=== PATIENT | male | born 1940 | race Caucasian/White ===

== ENCOUNTER → 2016-10-27 | Outpatient (CLI) | payer MEDICARE, OTHER ==
[~2016-10-27] MED LIST: ASP81CT PO; ATEN25TA PO; CHOL400T43 GT; CHONDROITIN; GLUC-153 PO; GLUC750T; MULT-608 PO; MULT-974 PO; OMG1KC PO; PRAV80TA2 PO; PRD20T; RT-ALBUINH IH; VLS80C; WRF10T PO; WRF5T PO
--- NOTE | 2016-10-27 13:08 | Diagnostic Imaging Report ---
Renal duplex ultrasound. INDICATION: Hypertension. FINDINGS: The right kidney is 12.7 and the left kidney is 11.4 cm in length. There is no hydronephrosis or focal lesion. The right renal artery is obscured proximally and has velocities of 44 and 41 cm/sec in mid and distal segments. The left renal artery velocities are 54, 137 and 55 cm/sec from proximal to distal. The resistive index on the right side is 0.64 to 0.69 and in the left kidney is 0.66-0.68. IMPRESSION: Proximal right renal artery is obscured by overlying bowel. No definite abnormality is seen otherwise. Dictated by: Dictated on workstation # [id number]
== END ==
LOC: RAD 09:57
PROVIDERS: ATTEND Internal Medicine Cardiovascular Disease
DX: I10 Essential (primary) hypertension (principal); E78.2 Mixed hyperlipidemia; R07.9 Chest pain, unspecified; R06.02 Shortness of breath; I82.599 Chronic embolism and thrombosis of other specified deep vein of unspecified lower extremity
CPT/HCPCS: 93975

== ENCOUNTER 2017-05-19 11:29 | Outpatient (RCR) | payer MEDICARE, OTHER | END 2017-07-16 | disposition home or self-care (01) | LOC: CARD 11:29 | PROVIDERS: ATTEND Physician Assistant | DX: I10 Essential (primary) hypertension (principal); E78.2 Mixed hyperlipidemia; R06.02 Shortness of breath; R00.2 Palpitations | CPT/HCPCS: 93225; 93226 ==

== ENCOUNTER → 2017-07-04 | Outpatient (CLI) | payer MEDICARE, OTHER ==
--- NOTE | 2017-07-04 15:55 | Diagnostic Imaging Report ---
PA and lateral views of the chest Indication: Shortness of breath. Cough. Findings: The lungs are clear. The heart size is normal. There is no effusion or pneumothorax The mediastinum and marcello appear unremarkable. Impression: Unremarkable study. Dictated by: Dictated on workstation # [id number]
--- NOTE | 2017-07-04 16:20 | Diagnostic Imaging Report ---
EXAMINATION: Three views of the right ribs. INDICATION: Posterior right rib pain. FINDINGS: There is no fracture or focal lesion seen in the right ribs. The right lung appears clear. IMPRESSION: Unremarkable exam. Dictated by: Dictated on workstation # [id number]
== END ==
LOC: RAD 15:21
PROVIDERS: ATTEND Nurse Practitioner
DX: R06.02 Shortness of breath (principal); R05 Cough
CPT/HCPCS: 71020; 71100

== ENCOUNTER → 2017-09-02 | Outpatient (CLI) | payer MEDICARE, OTHER ==
[~2017-09-02] MED LIST changes: +CATHETER FLUSH 10 ML SYR IV PRN; +IOHEXOL 350 MG/ML 100 ML (OMNIPAQUE 350) VIAL IV ONE; +NS 100 ML (IVPB) BAG IV ONE
[2017-09-02 10:57] LABS: BLOOD UREA NITROGEN 14 MG/DL (7-18); BUN/CREATININE RATIO 18; CREATININE SERUM 0.79 MG/DL (0.60-1.30); GFR ESTIMATED > 60
--- NOTE | 2017-09-02 12:13 | Diagnostic Imaging Report ---
PROCEDURE: CT chest with contrast only. TECHNIQUE: Multiple contiguous axial images were obtained through the chest after administration of intravenous contrast. INDICATION: Back pain inferior right scapular, worse with deep inspirations. FINDINGS: Scapulae appeared normally oriented, symmetric, and unremarkable. No periscapular soft tissue or fluid-density mass or mass effect. Ribs bilaterally appeared symmetric and unremarkable. There is some chronic thoracic spondylosis with no acute spinal abnormality. Sternum and manubrium are unremarkable. The aorta is unremarkable. The pulmonary arterial branches are centrally patent. No thoracic effusion. No lymphadenopathy. No focal consolidation. No lung mass. No atelectasis. No pleural or pericardial effusion. There is no pneumothorax. There are small stones within the gallbladder. The gallbladder partially visualized did not appear dilated and the biliary ducts were nondistended. The partially visualized pancreas is unremarkable. There is no adrenal mass. Upper poles of the kidneys are normal. IMPRESSION: No acute pulmonary parenchymal, pleural, mediastinal, or chest wall abnormality. Chest portion is unremarkable. Cholelithiasis is noted. Dictated by: Dictated on workstation # [id number]
== END ==
LOC: RAD 10:28
PROVIDERS: ATTEND Internal Medicine
DX: K80.20 Calculus of gallbladder without cholecystitis without obstruction (principal)
CPT/HCPCS: 36415; 71260; 82565; 84520

== ENCOUNTER → 2018-07-06 | Outpatient (CLI) | payer MEDICARE, OTHER ==
[~2018-07-06] MED LIST changes: -CATHETER FLUSH 10 ML SYR IV PRN; -IOHEXOL 350 MG/ML 100 ML (OMNIPAQUE 350) VIAL IV ONE; -NS 100 ML (IVPB) BAG IV ONE
--- NOTE | 2018-07-06 15:47 | Diagnostic Imaging Report ---
CLINICAL INDICATION: Patient with cough and congestion for past two weeks. Patient on [id number] drugs and not getting any better. EXAM: Chest x-ray PA and lateral views. COMPARISONS: Chest x-ray dated 07/04/2017. FINDINGS: Lungs/pleura: Lungs are clear. There is no pneumothorax. There is no pleural effusion. Mediastinum: Unremarkable. Pulmonary vasculature: Unremarkable. Heart: Unremarkable. Bones/extrathoracic soft tissue: There are moderately hypertrophic degenerative osteophytes scattered throughout the thoracic spine. IMPRESSION: There is no radiographic evidence of acute cardiopulmonary process. Dictated by: Dictated on workstation # [id number]
== END ==
LOC: RAD 14:26
PROVIDERS: ATTEND Nurse Practitioner
DX: J18.9 Pneumonia, unspecified organism (principal)
CPT/HCPCS: 71046

== ENCOUNTER → 2019-05-23 | Outpatient (CLI) | payer MEDICARE ==
[~2019-05-23] VITALS: Ht 182.9 cm; Wt 106.6 kg
[~2019-05-23] MED LIST changes: +CATHETER FLUSH 10 ML SYR IV PRN
[2019-05-23 09:08] VITALS: BP 153/92
[2019-05-23 09:15] VITALS: BP 225/107
[2019-05-23 09:17] VITALS: BP 188/91
--- NOTE | 2019-05-24 00:01 | STRESS TEST ---
DATE OF SERVICE: 05/23/2019 EXERCISE MYOVIEW STRESS STUDY Baseline heart rate is 62. Baseline blood pressure 153/92. Baseline EKG is sinus rhythm with no ischemic changes. In summary, the patient was injected with 11.0 mCi of technetium-99 Myoview and the resting images were obtained. Then, the patient started exercising with a baseline heart rate, blood pressure and EKG mentioned above. The patient was able to exercise for 5 minutes 15 seconds on standard Luis protocol. With peak exercise level, blood pressure was 228/98. EKG was showing minimal nondiagnostic changes. During recovery, heart rate and blood pressure returned to baseline. EKG returned to baseline. The resting and stress images were reviewed and compared in the short axis, horizontal long axis, and vertical long axis views. Review of the images showed diaphragmatic attenuation with typical male pattern. No significant ischemia or infarction was seen. SSS is 4, SDS 3, TID value 1.07. On the gated images, the left ventricle appeared to be in normal size with normal contractility. Calculated ejection fraction 52%. CONCLUSION: 1. Fair exercise tolerance, a total of 5 minutes 15 seconds on standard Luis protocol, total of 7.1 METS achieving 90% of maximum expected heart rate. 2. Severe hypertensive response to exercise with peak blood pressure 228/98 returned to baseline during recovery. 3. Nondiagnostic EKG changes with exercise returned to baseline during recovery. 4. Diaphragmatic attenuation with typical male pattern. No significant ischemia or infarction on SPECT images. 5. Normal left ventricular size with normal contractility. Calculated ejection fraction 52%. Job ID: [id number] DocumentID: [id number] Dictated Date: 05/23/2019 19:41:50 Supply Aide Date: 05/24/2019 00:01:17 Dictated By: MAMI REEDER MD
== END ==
LOC: CARD 06:57
PROVIDERS: ATTEND Internal Medicine Cardiovascular Disease
DX: I10 Essential (primary) hypertension (principal); E78.2 Mixed hyperlipidemia; R06.02 Shortness of breath; R00.2 Palpitations
CPT/HCPCS: 78452; 93017

== ENCOUNTER → 2020-10-14 | Outpatient (CLI) | payer MEDICARE, OTHER ==
[~2020-10-14] VITALS: Ht 182 cm; Wt 106.0 kg
[~2020-10-14] MED LIST changes: +BAMLANIVIMAB 700 MG in NS 200 ML IV ONE; -CATHETER FLUSH 10 ML SYR IV PRN; +EPINEPHrine INJECTION 1 MG/ML AMP IM PRN; +diphenhydrAMINE 50 MG/ML INJ (BENADRYL) IV PRN
[2020-10-14 13:01] VITALS: BP 154/89
[2020-10-14 14:42] VITALS: BP 156/74
[2020-10-14 15:45] VITALS: BP 156/79
== END ==
LOC: INFUSION 13:07
PROVIDERS: ATTEND Physician Assistant
DX: U07.1 COVID-19 (principal)

== ENCOUNTER → 2021-10-21 | Outpatient (CLI) | payer MEDICARE, OTHER ==
[~2021-10-21] MED LIST changes: -BAMLANIVIMAB 700 MG in NS 200 ML IV ONE; +CATHETER FLUSH 10 ML SYR IV PRN; -EPINEPHrine INJECTION 1 MG/ML AMP IM PRN; -diphenhydrAMINE 50 MG/ML INJ (BENADRYL) IV PRN
[2021-10-21 13:04] VITALS: BP 164/86
--- NOTE | 2021-10-21 14:48 | Cardiology Stress Test Report ---
Stress Test Report Date of Procedure/Referring: Date of Procedure: Oct 21, 2021 Berkley Zhao Admitting Physician Michi Blanca MD Indications: CAD Baseline Heart Rate: 62 Baseline Blood Pressure: Blood Pressure Systolic: 164 Blood Pressure Diastolic: 86 Vital Signs Date Time Temp Pulse Resp B/P (MAP) Pulse Ox O2 Delivery O2 Flow Rate FiO2 10/21/21 13:04 83 16 164/86 (112) 97 Room Air Baseline Vital Signs Vital Signs Date Time Temp Pulse Resp B/P (MAP) Pulse Ox O2 Delivery O2 Flow Rate FiO2 10/21/21 13:04 83 16 164/86 (112) 97 Room Air Baseline EKG: Baseline EKG: NSR Summary: After explaining the procedure and details to the patient, he signed the consent and was brought to the stress nuclear laboratory. Patient exercised on standard Luis protocol, EKG, heart rate and blood pressure were monitored continuously, resting and stress doses of radio tracer were injected, imaging was acquired and reviewed in the short axis, horizontal long axis and vertical long axis views Patient was able to exercise for a total of 4.30 minutes on Luis protocol, METs 6.2 Maximum heart rate 129 Maximum blood pressure 215/96 Stress EKG, Minimal nondiagnostic changes Recovery EKG, Return to baseline TID: 0.91 SSS: 4 SDS: 4 EF: 63 Conclusion: 1. Fair exercise tolerance for 4 minutes and 30 seconds on standard Luis protocol, 6.2 METS achieving 90% of maximum expected heart rate return to baseline during recovery 2. Appropriate heart rate response to exercise with multiple PVCs noted at peak stress level and short runs of 3 beats nonsustained ventricular tachycardia induced by exercise 3. Severe hypertensive response to exercise with peak blood pressure 215/96 return to baseline during recovery 4. Mild reversible ischemia involving the mid to apical inferior wall 5. Normal left ventricular size, EF 63% MAMI REEDER MD Oct 21, 2021 14:48
== END ==
LOC: CARD 11:30
PROVIDERS: ATTEND Physician Assistant
DX: I11.9 Hypertensive heart disease without heart failure (principal); I25.10 Atherosclerotic heart disease of native coronary artery without angina pectoris
CPT/HCPCS: 78452; 93017; 93306; A9502

== ENCOUNTER 2021-11-04 08:00 | Day surgery (SDC) | payer MEDICARE ==
[2021-11-04] VITALS (10 sets, daily range): BP systolic 123–164; BP diastolic 66–98
[~2021-11-04] VITALS: Ht 182.8 cm; Wt 109.4 kg
[2021-11-04 07:25] LABS: BILIRUBIN,URINE NEGATIVE (NEGATIVE); CLARITY,URINE CLEAR; COLOR,URINE YELLOW; GLUCOSE, URINE (UA) NEGATIVE (NEGATIVE); KETONES,URINE NEGATIVE (NEGATIVE); LEUKOCYTE ESTERASE ,URINE NEGATIVE (NEGATIVE); NITRITE,URINE NEGATIVE (NEGATIVE); PROTEIN,URINE NEGATIVE (NEGATIVE)
[2021-11-04 07:30] LABS: HEMATOCRIT 46 % (40-54); MEAN CORPUSCULAR HEMOGLOBIN 32 pg (25-34); MEAN CORPUSCULAR HGB CONC 35 g/dL (32-36); MEAN CORPUSCULAR VOLUME 90 fL (80-99); MEAN PLATELET VOLUME 9.7 fL (9.0-12.2); PLATELET COUNT 217 10^3/uL (130-400); WHITE BLOOD COUNT 6.5 10^3/uL (4.3-11.0)
--- NOTE | 2021-11-04 07:34 | Diagnostic Imaging Report ---
EXAM: CHEST 1 VIEW, AP/PA ONLY INDICATION: Coronary artery disease. Abnormal stress test. COMPARISON: 07/19/2016. FINDINGS: Normal heart size and pulmonary vascularity. No dense consolidation, pleural effusion or pneumothorax. No acute osseous findings. IMPRESSION: No acute cardiopulmonary findings. Dictated by: Dictated on workstation # [id number]
[2021-11-04 07:46] LABS: BACTERIA,URINE NEGATIVE /HPF
[~2021-11-04 08:00] MED LIST changes: +ACET-2267 PO; -CATHETER FLUSH 10 ML SYR IV PRN; +CETI10TA17 PO; +HEParin (CATH LAB) 2,000 ML IV ONE; +HYDR25TA4 PO; +LIDOCAINE 1% INJ 20 ML VIAL ONE; +LOSA100T57 PO; +MTP25TSR PO; +NS IV 1000 ML 1,000 ML IV SCH; +NS IV 1000 ML 1,000 ML ONE; +PRAV40TA2 PO
[2021-11-04 08:01] LABS: INR 0.9 (0.8-1.4); PROTHROMBIN TIME PATIENT 12.8 SEC (12.2-14.7)
[2021-11-04] MEDS ORDERED: fentaNYL INJ 100 MCG/2 ML AMP ONE (08:06)
[2021-11-04] MEDS ORDERED: MIDAZOLAM 5 MG/5 ML (VERSED) VIAL ONE (08:06)
[2021-11-04] MEDS ORDERED: HEParin 1000 UNIT/ML (10ML VIAL) FOR BOLUS ONE (08:06)
[2021-11-04] MEDS ORDERED: VERAPAMIL 5 MG/2 ML (CALAN) VIAL IV ONE (08:06)
[2021-11-04] MEDS ORDERED: NITRO DRIP 25000 MCG/D5W 250 ML IV ONE (08:07)
[2021-11-04] MEDS ORDERED: diphenhydrAMINE 50 MG/ML INJ (BENADRYL) ONE (08:08)
[2021-11-04 08:09] LABS: CREATININE SERUM 0.86 MG/DL (0.60-1.30); POTASSIUM 3.7 MMOL/L (3.6-5.0); TOTAL PROTEIN 6.6 GM/DL (6.4-8.2)
[2021-11-04] MEDS ORDERED: methylPREDNISolone 125 MG (Solu-MEDROL) VIAL ONE (08:09)
--- NOTE | 2021-11-04 08:15 | Conscious Sedation/ASA ---
Conscious Sedation Pre-Proced Time 08:15 ASA Score 3 For ASA 3 and 4: Consider anesthesia and medical clearance. Also, for patients with a history of failed moderate sedation consider anesthesia. Airway Lungs Heart ASA score ASA 1: a normal healthy patient ASA 2: a patient with a mild systemic disease (mid diabetes, controlled hypertension, obesity x ASA 3: a patient with a severe systemic disease that limits activity (angina, COPD, prior Myocardial infarction) ASA 4: a patient with an incapacitating disease that is a constant threat to life (CHF, renal failure) ASA 5: a moribund patient not expected to survive 24 hrs. (ruptured aneurysm) ASA 6: a declared brain- patient whose organs are being harvested. For emergent operations, add the letter E after the classification Mallampati Classification Grade 3 Sedation Plan Analgesia, Amnesia, Plan communicated to team members, Discussed options with patient/fam, Discussed risks with patient/fam The patient is an appropriate candidate to undergo the planned procedure, sedation, and anesthesia. The patient immediately re-assessed prior to indication. MAMI REEDER MD Nov 04, 2021 08:15
--- NOTE | 2021-11-04 08:50 | Discharge Inst-Post CATH ---
Discharge Inst-CATH/EP Problems Reviewed?: Yes Post Cardiac Cath/EP D/C Inst Follow Up/Plan Appointment with Dr. Pierre's office in 2 to 4 weeks <b>CARDIAC CATH/EP PROCEDURE DISCHARGE INSTRUCTIONS</b> ACTIVITY * Go Home directly and rest. * Limit activity of the leg (or wrist if it was used) for 7 days including aer obics, swimming, jogging, bicycling, etc. * Restrict stair-climbing for 7 days if possible, if not, climb up with your non-cath leg, then bring together on the same step. * Avoid lifting, pushing, pulling or excessive movement of the affected extremi ty for 7 days. * Customary sexual activity may be resumed after 2 days-use caution not to use a position that strains or causes pain to the affected extremity. * No driving for 24 hours. * NO SMOKING. * Avoid straining for bowel movements for 7 days. * Gentle walking on level ground is allowed. * Returning to work will depend on the type of procedure and the results. Your doctor will discuss this with you. CALL YOUR DOCTOR FOR ANY OF THE FOLLOWING: *If bleeding from the puncture site occurs- Apply gentle pressure to site with clean cloth and call your doctor or EMS. * If a knot or lump forms under the skin, increases in size, or causes pain. * If bruising appears to be worsening or moving further down your leg instead of disappearing. * Temperature above 101 F. CARE OF YOUR GROIN INCISION; * Bruising or purple discoloration of the skin near the puncture site is common. * You may shower only, no bathtub bathing for 5 days. Be careful to avoid slipping as your leg may feel stiff. * If a closure device was used on your femoral artery, please see the attached guide regarding care of the device and your leg. * Leave dressing on FOR 24 hours. CARE OF YOUR WRIST INCISION; * Bruising or purple discoloration of the skin near the puncture site is common. * You may shower. * DO NOT submerge wrist. * Leave dressing on FOR 24 hours. MAMI PIERRE MD Nov 04, 2021 08:50
--- NOTE | 2021-11-04 08:55 | Cardiac Cath Report ---
Cardiac Cath Report Physician (s)/Distribution Associate (s) Physician MAMI REEDER MD Pre-Procedure Diagnosis Pre-Procedure Diagnosis: Coronary artery disease Post-Procedure Note Procedure Start Date: Nov 04, 2021 Name of Procedure: Left heart catheterization Aortic arch angiogram Findings/Procedure Note PROCEDURE NOTE: 81 years old gentleman with history of recurrent chest pain, had an abnormal stress test, scheduled for cardiac catheterization possible PTCA. After explaining the procedure to the patient, all pros and cons were explained, all questions were answered. The patient signed the consent and then he was placed on the cardiac catheterization laboratory. Groin was prepped SL fashion local anesthesia was used. Sheath placed in the right radial artery, I had difficulty advancing the wire through the aortic arch due to tortuosity. I evaluated the aortic arch with angiogram at the end of the procedure. [place] catheter was advanced to the left ventricular cavity, pressure was measured, pullback LV to aorta was done, engaged the right and left coronary system, angiogram was done. At the end of the procedure the sheath was removed. 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 CONCLUSION: 1. Mild coronary artery disease nonobstructive disease 2. Normal left ventricular end-diastolic pressure 3. 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
[2021-11-04] MEDS ORDERED: NS IV 1000 ML 1,000 ML IV SCH (09:00)
== END 2021-11-04 12:13 | disposition home or self-care (01) ==
LOC: CATH 08:00 → SDC 09:09 → CATH 12:13
PROVIDERS: ATTEND Internal Medicine Cardiovascular Disease
DX: I25.10 Atherosclerotic heart disease of native coronary artery without angina pectoris (principal); I10 Essential (primary) hypertension; E78.2 Mixed hyperlipidemia; R00.2 Palpitations; M19.90 Unspecified osteoarthritis, unspecified site; E66.9 Obesity, unspecified; Z68.31 Body mass index [BMI] 31.0-31.9, adult; Z86.16 Personal history of COVID-19; Z87.891 Personal history of nicotine dependence; Z79.01 Long term (current) use of anticoagulants; Z79.82 Long term (current) use of aspirin; Z79.899 Other long term (current) drug therapy; Z86.718 Personal history of other venous thrombosis and embolism
CPT/HCPCS: 36221; 71045; 80053; 80061; 81000; 85027; 85610; 85730; 87081; 93458; C1894; 36415

== ENCOUNTER → 2021-12-08 | Outpatient (CLI) | payer MEDICARE ==
[~2021-12-08] MED LIST changes: -HEParin (CATH LAB) 2,000 ML IV ONE; -LIDOCAINE 1% INJ 20 ML VIAL ONE; -NS IV 1000 ML 1,000 ML IV SCH; -NS IV 1000 ML 1,000 ML ONE; +RT-ALBUTEROL SULF 2.5 MG/3 ML PRE-MIX VIAL INH ONE
== END ==
LOC: RT 10:45
PROVIDERS: ATTEND Internal Medicine Cardiovascular Disease
DX: R06.00 Dyspnea, unspecified (principal)
CPT/HCPCS: 94060; 94726; 94729

== ENCOUNTER → 2022-12-21 | Outpatient (CLI) | payer MEDICARE ==
[~2022-12-21] MED LIST changes: +ALBU8.5H6 IH; -RT-ALBUINH IH; -RT-ALBUTEROL SULF 2.5 MG/3 ML PRE-MIX VIAL INH ONE
[2022-12-21 09:45] LABS: HEMATOCRIT 47 % (40-54); HEMOGLOBIN 16.5 g/dL (13.3-17.7); MEAN CORPUSCULAR HEMOGLOBIN 31 pg (25-34); MEAN CORPUSCULAR HGB CONC 35 g/dL (32-36); MEAN CORPUSCULAR VOLUME 87 fL (80-99); MEAN PLATELET VOLUME 9.5 fL (9.0-12.2); PLATELET COUNT 220 10^3/uL (130-400); WHITE BLOOD COUNT 7.9 10^3/uL (4.3-11.0)
[2022-12-21 09:54] LABS: CHLORIDE 106 MMOL/L (98-107); POTASSIUM 3.2 MMOL/L (3.6-5.0); SODIUM 141 MMOL/L (135-145)
[2022-12-21 09:55] LABS: CALCIUM 8.9 MG/DL (8.5-10.1)
[2022-12-21 09:56] LABS: GLUCOSE 135 MG/DL (70-105)
[2022-12-21 09:57] LABS: CARBON DIOXIDE 22 MMOL/L (21-32)
[2022-12-21 09:59] LABS: ALKALINE PHOSPHATASE 95 U/L (40-136)
--- NOTE | 2022-12-21 09:59 | Diagnostic Imaging Report ---
EXAMINATION: Chest 2 view HISTORY: Cough. Dyspnea. COMPARISON: 07/06/2018 and 11/04/2021. FINDINGS: The lung volumes are normal. No focal consolidation is seen. No large pleural effusion or pneumothorax is seen. The cardiomediastinal silhouette is normal in size and contour. No acute osseous abnormality is seen. IMPRESSION: No acute pleuroparenchymal process. Dictated by: Dictated on workstation # [id number]
[2022-12-21 10:00] LABS: GFR ESTIMATED 89
[2022-12-21 10:01] LABS: BUN/CREATININE RATIO 21
[2022-12-21 10:02] LABS: ALANINE AMINOTRANSFERASE 23 U/L (0-55)
== END ==
LOC: CARD 09:29
PROVIDERS: ATTEND Nurse Practitioner Family
DX: R05.9 Cough, unspecified (principal); R06.00 Dyspnea, unspecified
CPT/HCPCS: 36415; 71046; 80053; 84484; 85027; 85379; 93005

== ENCOUNTER → 2022-12-29 | Outpatient (CLI) | payer MEDICARE | LOC: CARD 10:07 | PROVIDERS: ATTEND Internal Medicine Cardiovascular Disease | DX: I11.9 Hypertensive heart disease without heart failure (principal); I08.0 Rheumatic disorders of both mitral and aortic valves; I25.10 Atherosclerotic heart disease of native coronary artery without angina pectoris | CPT/HCPCS: 93306 ==

== ENCOUNTER 2023-02-02 07:22 | Day surgery (SDC) | payer MEDICARE ==
[2023-02-02] VITALS (8 sets, daily range): BP systolic 114–146; BP diastolic 77–104
[~2023-02-02] VITALS: Ht 182.9 cm; Wt 101.9 kg
[2023-02-02] MEDS ORDERED: NS IV 1000 ML 1,000 ML IV SCH (07:30)
[2023-02-02] MEDS ORDERED: NS IV 1000 ML 1,000 ML ONE (07:43)
[2023-02-02] MEDS ORDERED: proPOfol 200 MG/20 ML (DIPRIVAN) VIAL IV ONE (07:44)
--- NOTE | 2023-02-02 08:18 | Cardiac Procedure Note-CS/ASA ---
Pre-Procedure Note Pre-Op Procedure Note Date of Available H&P: Jan 18, 2023 Date H&P Reviewed: Feb 02, 2023 Time H&P Reviewed: 08:17 History & Physical: H&P Reviewed, Patient Examed, No changes noted Pre-Operative Diagnosis: a fib Moderate Sedation PreProcedure Time 08:17 ASA Score 3 Airway Lungs Heart ASA score ASA 1: a normal healthy patient ASA 2: a patient with a mild systemic disease (mid diabetes, controlled hypertension, obesity ASA 3: a patient with a severe systemic disease that limits activity (angina, COPD, prior Myocardial infarction) ASA 4: a patient with an incapacitating disease that is a constant threat to life (CHF, renal failure) ASA 5: a moribund patient not expected to survive 24 hrs. (ruptured aneurysm) ASA 6: a declared brain- patient whose organs are being harvested. For emergent operations, add the letter E after the classification Mallampati Classification Grade 3 Sedation Plan Analgesia, Amnesia, Plan communicated to team members, Discussed options with patient/fam, Discussed risks with patient/fam The patient is an appropriate candidate to undergo the planned procedure, sedation, and anesthesia. The patient immediately re-assessed prior to indication. MAMI REEDER MD Feb 02, 2023 08:18
[2023-02-02] MEDS ORDERED: LOSA100T57 PO (08:23)
[2023-02-02] MEDS ORDERED: OMEG100032 PO (08:23)
[2023-02-02] MEDS ORDERED: HYDR25TA4 PO (08:23)
[2023-02-02] MEDS ORDERED: RT-ALBUINH INH (08:23)
[2023-02-02] MEDS ORDERED: MULT-1136 PO (08:23)
[2023-02-02] MEDS ORDERED: ACET325T38 PO (08:23)
[2023-02-02] MEDS ORDERED: RIVA20TA PO (08:23)
[2023-02-02] MEDS ORDERED: PRAV80TA2 PO (08:23)
[2023-02-02] MEDS ORDERED: ASPI-1238 PO (08:23)
[2023-02-02] MEDS ORDERED: MTP100TCR PO (08:23)
[2023-02-02] MEDS ORDERED: FLEC50TA PO (08:26)
--- NOTE | 2023-02-02 08:27 | Discharge Inst-Post CATH ---
Discharge Inst-CATH/EP Problems Reviewed?: Yes Post Cardiac Cath/EP D/C Inst Follow Up/Plan Appointment with Dr. Pierre's office in 1 to 2 weeks <b>CARDIAC CATH/EP PROCEDURE DISCHARGE INSTRUCTIONS</b> ACTIVITY * Go Home directly and rest. * Limit activity of the leg (or wrist if it was used) for 7 days including aer obics, swimming, jogging, bicycling, etc. * Restrict stair-climbing for 7 days if possible, if not, climb up with your non-cath leg, then bring together on the same step. * Avoid lifting, pushing, pulling or excessive movement of the affected extremi ty for 7 days. * Customary sexual activity may be resumed after 2 days-use caution not to use a position that strains or causes pain to the affected extremity. * No driving for 24 hours. * NO SMOKING. * Avoid straining for bowel movements for 7 days. * Gentle walking on level ground is allowed. * Returning to work will depend on the type of procedure and the results. Your doctor will discuss this with you. CALL YOUR DOCTOR FOR ANY OF THE FOLLOWING: *If bleeding from the puncture site occurs- Apply gentle pressure to site with clean cloth and call your doctor or EMS. * If a knot or lump forms under the skin, increases in size, or causes pain. * If bruising appears to be worsening or moving further down your leg instead of disappearing. * Temperature above 101 F. CARE OF YOUR GROIN INCISION; * Bruising or purple discoloration of the skin near the puncture site is common. * You may shower only, no bathtub bathing for 5 days. Be careful to avoid slipping as your leg may feel stiff. * If a closure device was used on your femoral artery, please see the attached guide regarding care of the device and your leg. * Leave dressing on FOR 24 hours. CARE OF YOUR WRIST INCISION; * Bruising or purple discoloration of the skin near the puncture site is common. * You may shower. * DO NOT submerge wrist. * Leave dressing on FOR 24 hours. MAMI PIERRE MD Feb 02, 2023 08:27
--- NOTE | 2023-02-02 08:28 | Cardioversion ---
Cardioversion PROCEDURE PHYSICIAN: Mami Pierre DATE OF PROCEDURE: 02/02/23 DIRECT EXTERNAL ELECTRICAL CARDIOVERSION: Indications: Atrial Fibrillation with rapid ventricular rate Preoperative diagnoses: Atrial Fibrillation with rapid ventricular rate Postoperative diagnosis: Sinus rhythm, Successful Electrical Cardioversion History: 82 years old gentleman noticed to be in atrial fibrillation, has been complaining of fatigue, has been on oral anticoagulation, scheduled for electrical cardioversion Anesthesia: By Anesthesia services Complications: None Specimen: None Contrast: 0 Flouroscopy: none Procedure Details: The patient was brought the farm laborer after informed consent was taken, all the risks and complications were explained including the risk of stroke. Electrical cardioversion was carried out with anesthesia support with propofol. 200 joules of synchronized shock was delivered through external patches which promptly restored sinus rhythm. The patient tolerated the procedure well. Conclusions: Successful electrical cardioversion terminating atrial fibrillation Final Diagnosis: Paroxysmal atrial fibrillation Palpitation Coronary artery disease Hypertension MAMI PIERRE MD Feb 02, 2023 08:28
--- NOTE | 2023-02-02 08:44 | Anesthesia-General Post-Op ---
MAC Patient Condition Mental Status/LOC: Same as Preop Cardiovascular: Satisfactory Nausea/Vomiting: Absent Respiratory: Satisfactory Pain: Controlled Complications: Absent Post Op Complications Complications None Follow Up Care/Instructions Patient Instructions None needed. Anesthesiology Discharge Order Discharge Order Patient is doing well, no complaints, stable vital signs, no apparent adverse anesthesia problems. No complications reported per nursing. KOSTAS HERNANDEZ CRNA Feb 02, 2023 08:44
== END 2023-02-02 09:20 | disposition home or self-care (01) ==
LOC: CATH 07:22
PROVIDERS: ATTEND Internal Medicine Cardiovascular Disease
DX: I48.0 Paroxysmal atrial fibrillation (principal); I10 Essential (primary) hypertension; E78.2 Mixed hyperlipidemia; I25.10 Atherosclerotic heart disease of native coronary artery without angina pectoris; I65.23 Occlusion and stenosis of bilateral carotid arteries; M19.90 Unspecified osteoarthritis, unspecified site; E66.9 Obesity, unspecified; Z68.31 Body mass index [BMI] 31.0-31.9, adult; Z96.651 Presence of right artificial knee joint; Z79.01 Long term (current) use of anticoagulants; Z86.16 Personal history of COVID-19; Z87.891 Personal history of nicotine dependence; Z86.718 Personal history of other venous thrombosis and embolism
CPT/HCPCS: 87081; 92960; 93005

== ENCOUNTER 2023-07-29 11:54 | Emergency (ER) | payer MEDICARE ==
[~2023-07-29] VITALS: Ht 182.8 cm; Wt 102.0 kg
[~2023-07-29 11:54] MED LIST changes: +ACET325T38 PO; +ASPI-1238 PO; +FLEC50TA PO; -LOSA100T57 PO; +LOSA100T58 PO; +MTP100TCR PO; +MULT-1136 PO; +OMEG100032 PO; +RIVA20TA PO; +RT-ALBUINH INH
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
[2023-07-29 12:44] LABS: BASOPHILS % (AUTO) 1 % (0-10); EOSINOPHILS # (AUTO) 0.2 10^3/uL (0.0-0.3); EOSINOPHILS % (AUTO) 3 % (0-10); HEMATOCRIT 43 % (40-54); HEMOGLOBIN 15.3 g/dL (13.3-17.7); LYMPHOCYTES # (AUTO) 1.8 10^3/uL (1.0-4.0); LYMPHOCYTES % (AUTO) 31 % (12-44); MEAN CORPUSCULAR HEMOGLOBIN 32 pg (25-34); MEAN CORPUSCULAR HGB CONC 35 g/dL (32-36); MEAN CORPUSCULAR VOLUME 91 fL (80-99); MONOCYTES # (AUTO) 0.6 10^3/uL (0.0-1.0); MONOCYTES % (AUTO) 10 % (0-12); NEUTROPHILS # (AUTO) 3.3 10^3/uL (1.8-7.8); NEUTROPHILS % (AUTO) 56 % (42-75); PLATELET COUNT 183 10^3/uL (130-400); WHITE BLOOD COUNT 5.9 10^3/uL (4.3-11.0)
[2023-07-29 12:51] LABS: ALBUMIN 3.9 GM/DL (3.2-4.5); INR 1.6 (0.8-1.4); POTASSIUM 3.4 MMOL/L (3.6-5.0); PROTHROMBIN TIME PATIENT 19.5 SEC (12.2-14.7)
[2023-07-29 12:53] LABS: TOTAL PROTEIN 6.4 GM/DL (6.4-8.2)
[2023-07-29 12:55] LABS: BILIRUBIN,TOTAL 1.3 MG/DL (0.1-1.0)
[2023-07-29 12:57] LABS: CREATININE SERUM 0.86 MG/DL (0.60-1.30)
[2023-07-29 13:05] LABS: ERYTHROCYTE SEDIMENTATION RATE 7 MM/HR (0-30); FIBRIN DEGRADATION PRODUCTS 0.51 UG/ML (0.00-0.49)
--- NOTE | 2023-07-29 13:09 | Diagnostic Imaging Report ---
INDICATION: Ankle pain. FINDINGS: Significant soft tissue swelling about the right ankle laterally is present, but the lateral, medial, and posterior malleoli are intact, and no fracture is identified. No articular irregularity. IMPRESSION: Lateral swelling, but no acute bony pathology at three-view right ankle. Dictated by: Dictated on workstation # [id number]
--- NOTE | 2023-07-29 13:10 | Diagnostic Imaging Report ---
INDICATION: Foot and ankle pain and swelling. FINDINGS: Three views of the right foot performed. No fracture, dislocation, or acute articular irregularity is found. There is swelling about the hindfoot and ankle laterally. IMPRESSION: Soft tissue swelling but no acute bony pathology at three-view right foot. Dictated by: Dictated on workstation # [id number]
--- NOTE | 2023-07-29 13:51 | Diagnostic Imaging Report ---
PROCEDURE: US right lower extremity venous. TECHNIQUE: Multiple real-time grayscale images were obtained over the right lower extremity in various projections. Additional spectral analysis and color Doppler duplex images were also obtained. INDICATION: Right lower extremity swelling EXAMINATION: Grayscale and color Doppler evaluation of the deep veins of the right lower extremity were performed with waveform analysis. FINDINGS: Continuous venous flow is present. No intraluminal filling defect is identified. There is normal compressibility and response to augmentation. No abnormal perivascular fluid collection is identified. IMPRESSION: No ultrasound evidence of right lower extremity deep venous thrombosis. Dictated by: Dictated on workstation # [id number]
[2023-07-29 14:27] VITALS: BP 170/92
== END 2023-07-29 14:22 | disposition home or self-care (01) ==
LOC: EDUNIT# 11:54 → ER 11:56
DX: S93.401A Sprain of unspecified ligament of right ankle, initial encounter (principal); S96.911A Strain of unspecified muscle and tendon at ankle and foot level, right foot, initial encounter; I48.91 Unspecified atrial fibrillation; Z79.01 Long term (current) use of anticoagulants; W50.0XXA Accidental hit or strike by another person, initial encounter
CPT/HCPCS: 36415; 73610; 73630; 80053; 83880; 85025; 85379; 85610; 85652; 85730; 86141

== ENCOUNTER → 2023-09-22 | Outpatient (CLI) | payer MEDICARE | LOC: LAB 08:57 | PROVIDERS: ATTEND Specialist | DX: Z12.5 Encounter for screening for malignant neoplasm of prostate (principal) | CPT/HCPCS: 36415; 84153 ==